=== PATIENT | female | born 1985 | race Caucasian/White ===

== ENCOUNTER 2017-11-21 09:51 | Inpatient (IN) | payer SELFPAY ==
[2017-11-21] MEDS: Lactated Ringer's 1,000 ML IV SCH ×2 (10:30→14:28)
[2017-11-21] MEDS ORDERED: HYDROcodone/Acetaminophen 5/325 mg Tablet PO PRN ×4 (10:43→22:11)
[2017-11-21] MEDS ORDERED: Butorphanol Tartrate 1 MG/ML VIAL SLOW IVP PRN (10:43)
[2017-11-21] MEDS ORDERED: Lidocaine 1% (PF) 30 ML VIAL SC PRN (10:43)
[2017-11-21] MEDS ORDERED: Acetaminophen 500 MG TAB PO PRN (10:43)
[2017-11-21] MEDS ORDERED: Misoprostol 200 MCG TAB PR PRN (10:43)
[2017-11-21] MEDS ORDERED: Diphenoxylate HCl/Atropine Tablet PO PRN ×2 (10:43)
[2017-11-21] MEDS ORDERED: Methylergonovine 0.2 MG/ML VIAL IM PRN (10:43)
[2017-11-21] MEDS ORDERED: Ondansetron HCl/PF 4 MG/2 ML Vial IVP PRN ×3 (10:43→22:11)
[2017-11-21] MEDS ORDERED: Promethazine HCl 25 MG/ML VIAL IM PRN ×3 (10:43→22:11)
[2017-11-21] MEDS ORDERED: Carboprost 250 MCG/ML AMP IM PRN (10:43)
[2017-11-21] MEDS ORDERED: Ibuprofen 800 MG TAB PO PRN (10:43)
[2017-11-21] MEDS ORDERED: NS w/ Oxytocin 10 units 500 ML IV SCH (10:45)
--- NOTE | 2017-11-21 11:07 | PDOC.LDHP ---
Labor and Delivery H&P Chief complaint: contractions HPI: 31 y/o G1 at 41w1d by reported 12 week US done at [facility] presents with contractions since yesterday. They have become more painful and regular. Denies VB, LOF, PIH sx, UTI sx or decreased FM. No PNC due to lack of insurance coverage. Has hx of heart arrhythmia but denies sx today. ROS neg for HEENT, CV, pulm, GI, , neuro, psych, skin, musculoskeletal, or constitutional symptoms other than mentioned above. Due date: 11/13/17 Dating criteria: first trimester ultrasound OB History Details: First Current complications: other (no PNC) Past Medical History: Morbid obesity Hx 2nd degree heart block, no medications Hx afib on Labetalol 200mg BID (has weaned herself down to 100mg BID) Current medications: other (labetalol 100mg BID) Previous surgical history: none Allergies/Adverse Reactions: Allergies Allergy/AdvReac Type Severity Reaction Status Date / Time cephalexin [From Keflex] Allergy Verified 11/21/17 10:28 Social history: tobacco use (quit when found out ) - Physical Exam Vital signs reviewed and normal: yes General: NAD, breathing through contractions Lungs: nonlabored breathing Abdomen: gravid Extremeties: no edema FHT: category 1 (150s, mod variability, + accels, occasional early decels) [place] contractions every: 5 mins - Vaginal Exam cm dilated: 5 Effacement: 90% Station: -2 - Assessment L&D Assessment: term patient in labor - Plan Plan: admit to L&D, labor augmentation if indicated, informed consent obtained, anesthesia consult for pain management -: Will get EKG for history of arrhythmia Request for records sent to [facility] UDS ordered Continue current management.
[2017-11-21 11:23] LABS: Hemoglobin 12.7 g/dL (12.0-16.0); Mean Corpuscular HGB CONC 35.5 g/dL (32.0-36.0); Mean Corpuscular Volume 90.3 fl (81.0-99.0); Mean Platelet Volume 7.1 fL (7.4-10.4); Platelet Count 242 thou/uL (130-400); RBC Distribution Width 12.7 % (11.5-14.5); Red Blood Cell (RBC) Count 3.97 mill/uL (4.20-5.40); White Blood Cell (WBC) Count 16.2 thou/uL (4.8-10.8)
[2017-11-21 11:44] LABS: Amphetamine Not Detected (NotDetected); Barbiturates Screen Not Detected (NotDetected); Benzodiazepine Screen Not Detected (NotDetected); Cocaine Metabolite Screen Not Detected (NotDetected); Medtox Control Line Valid? VALID (VALID); Medtox Reader # READER 4; Methadone Not Detected (NotDetected); Methamphetamine Not Detected (NotDetected); Opiate Screen Not Detected (NotDetected); Oxycodone Screen Not Detected (NotDetected); Phencyclidine (PCP) Not Detected (NotDetected); THC/Cannabinoid Screen Not Detected (NotDetected); Tricyclic Screen Not Detected (NotDetected)
[2017-11-21 11:54] LABS: HBSAg Index 0.25 S/CO (0-0.99); HIV (1/2) Antibody/Antigen Non-Reactive (NonReactive); HIV 1/2 INDEX 0.08 S/CO (<1.00); Hep B Surf Ag Non-Reactive S/CO (NonReactive); Syphilis Antibody Nonreactive (Nonreactive); Syphilis Antibody Index 0.02 S/CO (<1.00 Non-Reactive)
[2017-11-21] MEDS ORDERED: DISCONTINUE ALL PREVIOUS NARCOTICS FS SCH (12:15)
[2017-11-21] MEDS: Bupivacaine 0.5% 20 ML, fentaNYL Citrate/PF 400 MCG in Sodium Chloride 0.9% 72 ML EPIDURAL SCH ×2 (13:40→19:25)
[2017-11-21] MEDS ORDERED: Lactated Ringer's 500 ML IV PRN (13:50)
[2017-11-21] MEDS ORDERED: Acetaminophen 325 MG TAB PO PRN (13:50)
[2017-11-21] MEDS ORDERED: Naloxone HCl 0.4 mg/ml Vial IVP PRN ×2 (13:50)
[2017-11-21] MEDS ORDERED: Eucerin (Mineral Oil/Petrolatum,White) 30 gm Jar TOP PRN (13:50)
[2017-11-21] MEDS ORDERED: diphenhydrAMINE 50 MG/ML VIAL IVP PRN (13:50)
[2017-11-21] MEDS ORDERED: ePHEDrine/0.9% NaCl/PF SYRINGE 50 mg/10 ml SLOW IVP PRN (13:50)
[2017-11-21] MEDS ORDERED: Communication Order-Pharmacy FS SCH (14:00)
[2017-11-21] MEDS ORDERED: Fentanyl 4mcg/Marcaine 0.1% Cassette 100 ML EPIDURAL SCH (14:00)
--- NOTE | 2017-11-21 14:09 | ULT ---
OBSTETRIC SONOGRAM: HISTORY: Term with labor. No care. FINDINGS: Multiple transabdominal sonographic views of the gravid uterus show a single intrauterine gestation i n cephalic presentation. No gross intracranial abnormalities are demonstrated. Four-chamber heart s hows motion at 140 b.p.m. Amniotic fluid is decreased with an amniotic fluid index of 6.6. Grade II placenta is anterior and to the maternal left. Advanced age limits anatomic detail. Measurem ents are as follows: Biparietal diameter 38 weeks 1 day Head circumference 41 weeks 0 days Abdominal circumference 39 weeks 1 day Femur length 40 weeks 0 days Estimated weight 3785 gm (8 pounds 6 ounces). IMPRESSION: 1. Single viable intrauterine gestation with estimated gestational age based on today's sonogram of 39 weeks 4 days. 2. Oligohydramnios. Amniotic fluid index=6.6. POS: [facility]
--- NOTE | 2017-11-21 14:40 | PDOC.LDPN ---
Labor & Delivery Progress Note - Subjective Subjective: comfortable - Objective Vital signs reviewed and normal: yes General: NAD, resting Uterine fundus: non tender Dilation: 6 Effacement: 90% Station: -2 FHT: category 2 (late decels noted after internal monitors placed.) [place] contractions every: 4 mins AROM: bloody fluid (with meconium) IUPC placed: yes FSE placed: yes Resuscitative measures: maternal IV fluids, maternal position change - Assessment (1) 42 weeks gestation of Code(s): Z3A.42 - 42 WEEKS GESTATION OF Current Visit: Yes Status : Acute (2) Meconium in amniotic fluid Code(s): P96.83 - MECONIUM STAINING Current Visit: Yes Status: Acute (3) Morbid obesity Code(s): E66.01 - MORBID (SEVERE) OBESITY DUE TO EXCESS CALORIES Current Visit : Yes Status: Acute -: Resuscitative measures at this time. If decelerations persist, will proceed with delivery.
[2017-11-21] MEDS ORDERED: Bupivacaine 0.25% HCL 30 ML VIAL ONE (20:00)
[2017-11-21] MEDS ORDERED: Bupivacaine/Epinephrine 0.25% 30 ML VIAL ONE (20:00)
[2017-11-21] MEDS: NS / Oxytocin 40 units/1000ml 1,000 ML IV PRN ×2 (21:48→22:49)
[2017-11-21] MEDS ORDERED: Carboprost 250 MCG/ML AMP ONE (21:51)
[2017-11-21] MEDS ORDERED: Benzocaine/Menthol 20-0.5% 60 ML CAN TOP PRN (22:11)
[2017-11-21] MEDS ORDERED: Zolpidem Tartrate 5 MG TAB PO PRN (22:11)
[2017-11-21] MEDS ORDERED: Preparation H Ointment 28 GM TUBE PR PRN (22:11)
[2017-11-21] MEDS ORDERED: diphenhydrAMINE 25 MG CAP PO PRN (22:11)
[2017-11-21] MEDS ORDERED: Misoprostol 200 MCG TAB VAG PRN (22:11)
[2017-11-21] MEDS ORDERED: Measles/Mumps/Rubella 10 MCG/0.5 ML VIAL SC ONE (22:11)
[2017-11-21] MEDS ORDERED: Lanolin Ointment 7 GM TUBE TOP PRN (22:11)
[2017-11-21] MEDS ORDERED: Varicella virus, LIVE 0.5 ML VIAL SC ONE (22:11)
[2017-11-21] MEDS ORDERED: Adacel (T-DAP) 0.5 ML VIAL IM ONE (22:11)
[2017-11-21] MEDS ORDERED: Bisacodyl 10 MG SUPP PR PRN (22:11)
[2017-11-21] MEDS ORDERED: NS / Oxytocin 40 units/1000ml 1,000 ML IV SCH (22:15)
--- NOTE | 2017-11-21 22:15 | PDOC.OPDEL ---
OB Operative/Delivery Note Delivery Dr/Surgeon: Trupti Assist: Katiuska Pre-Delivery Diagnosis: active labor Procedure/Post Delivery Dx: spontaneous vaginal delivery Weeks gestation: 42 Anesthesia: epidural - Findings A Sex: female (Cherie Cline) Weight: 8 lb 0.009 oz - 1 min: 8 - 5 min: 9 - Additional Findings/Plan Placenta delivered: spontaneous Repaired Obstetrical Laceration: 2nd degree (with periurethral) Estimated blood loss: 200 Post delivery plan: routine recovery
[2017-11-22] MEDS ORDERED: Labetalol 100 MG TAB PO SCH (00:45)
[2017-11-22] MEDS: Ibuprofen 800 MG TAB PO SCH ×3 (05:30→21:35)
--- NOTE | 2017-11-22 07:45 | PDOC.PP ---
Post Progress Note Post Day #: 1 Subjective: Doing well without complaints this morning. Pain improved. PO intake tolerated: yes Flatus: yes Ambulation: yes Vital Signs (12 hours) Temp Pulse Resp BP BP Pulse Ox 11/22/17 03:45 99.0 F 92 20 135/62 11/22/17 02:10 98.8 F 87 22 H 135/62 97 11/22/17 01:03 65 156/70 H 11/21/17 20:03 97.9 F 65 20 Weight Weight 320 lb - Physical Examination General: NAD Respiratory: non-labored breathing Abdominal: lochia (normal), no distention, appropriately TTP Extremities: negative homans (B) Neurological: no gross focal deficits Psychiatric: A&Ox3, normal affect Result Diagrams: 11/21/17 11:05 Additional Labs: Post Labs Blood Type O NEGATIVE 11/21/17 11:05 Hep Bs Antigen Non-Reactive S/CO (NonReactive) 11/21/17 11:05 (1) 42 weeks gestation of Code(s): Z3A.42 - 42 WEEKS GESTATION OF Status: Acute (2) Meconium in amniotic fluid Code(s): P96.83 - MECONIUM STAINING Status: Acute (3) Morbid obesity Code(s): E66.01 - MORBID (SEVERE) OBESITY DUE TO EXCESS CALORIES Status: Acute - Assessment/Plan Continue routine management. Anticipate d/c tomorrow.
[2017-11-22] MEDS: Docusate Calcium (SURFAK) 240 MG CAP PO SCH ×2 (11:36→21:35)
[2017-11-22] MEDS: Ferrous Sulfate 325 MG TAB PO SCH ×2 (11:37→21:37)
[2017-11-22] MEDS: Labetalol 100 MG TAB PO SCH ×2 (11:37→21:35)
[2017-11-22] MEDS: Prenatal Vitamin 1 TAB PO SCH (11:37)
[2017-11-22] MEDS: Milk Of Magnesia 30 ML UDCUP PO PRN (14:54)
--- NOTE | 2017-11-23 02:10 | PDOC.PP ---
Post Progress Note Post Day #: 1-2 Subjective: Doing well. baby in room. PO intake tolerated: yes Flatus: yes Ambulation: yes Vital Signs (12 hours) Temp Pulse Resp BP BP 11/23/17 00:31 82 124/59 L 11/22/17 21:35 89 139/63 11/22/17 20:02 98.3 F 89 20 139/63 11/22/17 17:43 98.4 F 90 20 137/63 11/22/17 16:25 98.0 F 87 20 Weight Weight 320 lb - Physical Examination General: NAD Cardiovascular: no m/r/g Respiratory: clear to auscultation bilaterally Abdominal: + bowel sounds, lochia, no distention, appropriately TTP Extremities: negative homans (B) Neurological: no gross focal deficits Psychiatric: A&Ox3, normal affect Result Diagrams: 11/21/17 11:05 Additional Labs: Post Labs Blood Type O NEGATIVE 11/21/17 11:05 Hep Bs Antigen Non-Reactive S/CO (NonReactive) 11/21/17 11:05 (1) Vaginal delivery Code(s): O80 - ENCOUNTER FOR FULL-TERM UNCOMPLICATED DELIVERY Status: Acute - Assessment/Plan Plan: PPD 1, will be 48 hrs at 2100 tonight so we will keep until tomorrow Friday. She will have follow up with an MD in [place] according to her. LYN has seen her as well. Baby ok.
[2017-11-23] MEDS: Ibuprofen 800 MG TAB PO SCH ×2 (05:30→17:04)
[2017-11-23] MEDS: Labetalol 100 MG TAB PO SCH ×2 (11:40→21:40)
[2017-11-23] MEDS: Milk Of Magnesia 30 ML UDCUP PO PRN (11:40)
[2017-11-23] MEDS: Prenatal Vitamin 1 TAB PO SCH (11:41)
[2017-11-23] MEDS: Docusate Calcium (SURFAK) 240 MG CAP PO SCH ×2 (11:41→21:40)
[2017-11-23] MEDS: Ferrous Sulfate 325 MG TAB PO SCH ×2 (11:42→17:07)
[2017-11-24] MEDS: Ibuprofen 800 MG TAB PO SCH ×2 (05:19)
[2017-11-24] MEDS: Ferrous Sulfate 325 MG TAB PO SCH (07:38)
[2017-11-24 09:20] VITALS: BP 118/66
[2017-11-24] MEDS: Docusate Calcium (SURFAK) 240 MG CAP PO SCH (09:20)
[2017-11-24] MEDS: Labetalol 100 MG TAB PO SCH (09:20)
[2017-11-24] MEDS: Prenatal Vitamin 1 TAB PO SCH (09:20)
[2017-11-24 10:05] VITALS: TEMP 98.3
== END 2017-11-24 13:50 | disposition home or self-care (01) | DRG 775 ==
LOC: L&D/OP 09:51 → L&D 10:55 → 3SW 11-22 02:15
PROVIDERS: ADMIT Obstetrics & Gynecology; ATTEND Obstetrics & Gynecology
PROC: 10E0XZZ Delivery of Products of Conception, External Approach (ICD-10-PCS; principal; 2017-11-22)
PROC: 0KQM0ZZ Repair Perineum Muscle, Open Approach (ICD-10-PCS; 2017-11-22)
DX: O41.03X0 Oligohydramnios, third trimester, not applicable or unspecified (principal); Z68.42 Body mass index [BMI] 45.0-49.9, adult; O70.1 Second degree perineal laceration during delivery; Z37.0 Single live birth; Z3A.42 42 weeks gestation of pregnancy; O77.0 Labor and delivery complicated by meconium in amniotic fluid; O99.214 Obesity complicating childbirth; E66.01 Morbid (severe) obesity due to excess calories; Z87.891 Personal history of nicotine dependence; O69.81X0 Labor and delivery complicated by cord around neck, without compression, not applicable or unspecified; O69.2XX0 Labor and delivery complicated by other cord entanglement, with compression, not applicable or unspecified; O24.429 Gestational diabetes mellitus in childbirth, unspecified control
CPT/HCPCS: 36415; 36416; 51701; 51702; 76805; 80306; 85027; 85461; 86762; 86780; 86850; 86900; 86901; 87340; 87389; 88307; 90384; 90715; 93005; 93010; 96372; 99285; J2001; J2405; J3010; J3490; J7050; S0020